=== PATIENT | female | born 1950 | race Caucasian/White ===

== ENCOUNTER 2023-01-08 16:10 | Emergency (ER) | payer MEDICARE ==
[~2023-01-08] VITALS: Ht 157.5 cm; Wt 96.2 kg
[2023-01-08] MEDS ORDERED: ADV250INH INH (18:26)
[2023-01-08] MEDS ORDERED: VENTAER INH (18:26)
[2023-01-08] MEDS ORDERED: ISOS1TAB35 PO (18:26)
[2023-01-08 18:50] VITALS: BP 144/86; TEMP 97.7; O2SAT 95
== END 2023-01-08 19:05 | disposition home or self-care (01) ==
LOC: M ED 16:10
DX: Z76.0 Encounter for issue of repeat prescription (principal); J45.909 Unspecified asthma, uncomplicated; F10.10 Alcohol abuse, uncomplicated; Z86.79 Personal history of other diseases of the circulatory system; Z88.0 Allergy status to penicillin

== ENCOUNTER 2023-05-06 08:21 | Emergency (ER) | payer MEDICARE ==
[~2023-05-06] VITALS: Ht 157.5 cm; Wt 102.2 kg
[~2023-05-06 08:21] MED LIST: ADV250INH INH; ISOS1TAB35 PO; VENTAER INH
[2023-05-06 08:22] VITALS: BP 158/72; TEMP 97.7; O2SAT 97
[2023-05-06] MEDS ORDERED: [UNRECOGNIZED DRUG - CODE] PO ×2 (09:15→09:24)
== END 2023-05-06 09:34 | disposition home or self-care (01) ==
LOC: M ED 08:21
DX: Z76.0 Encounter for issue of repeat prescription (principal); J45.909 Unspecified asthma, uncomplicated; Z96.651 Presence of right artificial knee joint; Z88.0 Allergy status to penicillin; Z87.81 Personal history of (healed) traumatic fracture; Z88.8 Allergy status to other drugs, medicaments and biological substances; Z91.030 Bee allergy status

== ENCOUNTER 2023-05-28 08:01 | Emergency (ER) | payer MEDICARE ==
[~2023-05-28] VITALS: Ht 157.5 cm; Wt 99.8 kg
[~2023-05-28 08:01] MED LIST changes: +[UNRECOGNIZED DRUG - CODE] PO
[2023-05-28 10:20] VITALS: BP 160/80; TEMP 97.8; O2SAT 95
[2023-05-28] MEDS ORDERED: [UNRECOGNIZED DRUG - CODE] PO (11:56)
== END 2023-05-28 12:01 | disposition home or self-care (01) ==
LOC: M ED 08:01
DX: Z76.0 Encounter for issue of repeat prescription (principal); Z79.899 Other long term (current) drug therapy; Z88.0 Allergy status to penicillin; Z88.1 Allergy status to other antibiotic agents; Z88.8 Allergy status to other drugs, medicaments and biological substances; Z91.030 Bee allergy status

== ENCOUNTER → 2023-06-23 | Outpatient (CLI) | payer MEDICARE | LOC: M RAD 10:12 | PROVIDERS: ATTEND Physician Assistant Medical | DX: I73.9 Peripheral vascular disease, unspecified (principal); Z82.49 Family history of ischemic heart disease and other diseases of the circulatory system ==

== ENCOUNTER → 2023-07-21 | Outpatient (CLI) | payer MEDICARE ==
[2023-07-21 16:30] LABS: ALBUMIN 3.5 G/DL (3.2-5.2); ALKALINE PHOSPHATASE 71 U/L (46-116); ALT/SGPT 20 U/L (7.0-40); AST/SGOT 11 U/L (<34); BILIRUBIN,TOTAL 0.5 MG/DL (0.3-1.2); BLOOD UREA NITROGEN 12 MG/DL (9-23); CALCIUM LEVEL 9.7 MG/DL (8.3-10.6); CARBON DIOXIDE LEVEL 25 MMOL/L (20-31); CHLORIDE LEVEL 105 MMOL/L (98-107); CHOLESTEROL LEVEL 225 MG/DL (<200); CHOLESTEROL RISK RATIO 3.86 (<5); CREATININE FOR GFR 0.59 MG/DL (0.55-1.30); GLOMERULAR FILTRATION RATE > 60.0 (>39); GLUCOSE, FASTING 72 MG/DL (74-106); HDL CHOLESTEROL 58.2 MG/DL (>40); LDL CHOLESTEROL 150.4 MG/DL (<100); NON-HDL-C 166.8 MG/DL; SODIUM LEVEL 139 MMOL/L (136-145); TOTAL PROTEIN 7.1 G/DL (5.7-8.2); TRIGLYCERIDES LEVEL 82 MG/DL (<150)
[2023-07-21 16:31] LABS: HEMOGLOBIN A1c 5.2 % (4.0-6.0)
[2023-07-21 16:33] LABS: CREATININE, URINE 139.4 MG/DL; MAU/CREAT RATIO 3.5 MCG/MG (0.0-30.0)
== END ==
LOC: M PLALAB 14:06
PROVIDERS: ATTEND Family Medicine
DX: E78.2 Mixed hyperlipidemia (principal); I10 Essential (primary) hypertension; E66.01 Morbid (severe) obesity due to excess calories; Z79.899 Other long term (current) drug therapy

== ENCOUNTER → 2024-01-24 | Outpatient (CLI) | payer MEDICARE ==
[2024-01-24 13:28] LABS: BASO % 0.6 % (0.0-1.0); EOS # 0.1 10^3/uL (0.0-0.5); EOS % 1.5 % (0.0-3.0); HEMATOCRIT 40.6 % (36.0-47.0); HEMOGLOBIN 13.1 g/dl (12.0-15.5); LYMPH # 1.3 10^3/uL (1.5-5.0); LYMPH % 27.4 % (24.0-44.0); MEAN CORPUSCULAR HEMOGLOBIN 30.1 pg (27.0-33.0); MEAN CORPUSCULAR HGB CONC 32.3 g/dl (32.0-36.5); MEAN CORPUSCULAR VOLUME 93.3 fl (80.0-96.0); MONO # 0.5 10^3/uL (0.0-0.8); MONO % 10.9 % (2.0-8.0); NEUTROPHILS # 2.8 10^3/uL (1.5-8.5); PLATELET COUNT, AUTOMATED 269 10^3/uL (150-450); RED BLOOD COUNT 4.35 10^6/uL (4.00-5.40); WHITE BLOOD COUNT 4.7 10^3/uL (4.0-10.0)
[2024-01-24 14:11] LABS: ALBUMIN 3.6 G/DL (3.2-5.2); ALKALINE PHOSPHATASE 81 U/L (35-104); ALT/SGPT 18 U/L (7.0-40); AST/SGOT 9 U/L (<34); BILIRUBIN,TOTAL 0.4 MG/DL (0.3-1.2); BLOOD UREA NITROGEN 12 MG/DL (9-23); CALCIUM LEVEL 9.8 MG/DL (8.3-10.6); CARBON DIOXIDE LEVEL 30 MMOL/L (20-31); CHLORIDE LEVEL 104 MMOL/L (98-107); CHOLESTEROL LEVEL 231 MG/DL (<200); CHOLESTEROL RISK RATIO 3.78 (<5); CREATININE FOR GFR 0.66 MG/DL (0.55-1.30); GLOMERULAR FILTRATION RATE > 60.0 (>39); GLUCOSE, FASTING 83 MG/DL (74-106); HDL CHOLESTEROL 61.1 MG/DL (>40); LDL CHOLESTEROL 155.7 MG/DL (<100); NON-HDL-C 169.9 MG/DL; POTASSIUM SERUM 4.9 MMOL/L (3.5-5.1); SODIUM LEVEL 138 MMOL/L (136-145); TOTAL 25(OH) VITAMIN D 24.7 NG/ML (20.0-100.0); TOTAL PROTEIN 7.8 G/DL (5.7-8.2); TRIGLYCERIDES LEVEL 71 MG/DL (<150)
[2024-01-24 14:12] LABS: VITAMIN B12 LEVEL 336 PG/ML (211-911)
== END ==
LOC: M PLALAB 09:22
PROVIDERS: ATTEND Family Medicine
DX: E78.2 Mixed hyperlipidemia (principal)

== ENCOUNTER → 2024-01-31 | Outpatient (CLI) | payer MEDICARE ==
[2024-01-31 13:44] LABS: CPK CREATINE PHOSPHOKINASE < 15 U/L (34-145)
[2024-01-31 13:47] LABS: FOLATE > 24.0 NG/ML (>5.4); VITAMIN B12 LEVEL 432 PG/ML (211-911)
[2024-02-01 07:27] LABS: T P ELECTROPHORESIS SO 7.6 g/dL (6.1-8.1)
[2024-02-02 09:02] LABS: ALBUMIN SPEP 4.2 g/dL (3.8-4.8); ALPHA-1-GLOBULINS SO 0.3 g/dL (0.2-0.3); ALPHA-2-GLOBULINS SO 0.9 g/dL (0.5-0.9); BETA 2 GLOBULIN 0.5 g/dL (0.2-0.5); BETA-GLOBULIN SO 0.4 g/dL (0.4-0.6); GAMMA GLOBULINS SO 1.2 g/dL (0.8-1.7)
[2024-02-04 04:06] LABS: VITAMIN E(ALPHA TOCOPHEROL) 14.4 mg/L (5.7-19.9); VITAMIN E(GAMMA TOCOPHEROL) < 1.0 mg/L (<=4.3)
== END ==
LOC: M PLALAB 01-24 09:21
PROVIDERS: ATTEND Psychiatry & Neurology Neurology
DX: E51.9 Thiamine deficiency, unspecified (principal); E53.1 Pyridoxine deficiency; E53.8 Deficiency of other specified B group vitamins; E56.0 Deficiency of vitamin E; G62.9 Polyneuropathy, unspecified; G72.9 Myopathy, unspecified; R20.0 Anesthesia of skin; R53.1 Weakness

== ENCOUNTER 2024-05-08 07:40 | Outpatient (RCR) | payer MEDICARE ==
[~2024-05-08 07:40] MED LIST changes: -ADV250INH INH; +ADVA1AER9 INH
== END 2024-05-11 ==
LOC: M PT 07:40
PROVIDERS: ATTEND Family Medicine
DX: R29.898 Other symptoms and signs involving the musculoskeletal system (principal); M54.16 Radiculopathy, lumbar region

== ENCOUNTER 2024-05-16 14:45 | Emergency (ER) | payer OTHER, MEDICARE ==
[~2024-05-16] VITALS: Ht 154.9 cm; Wt 88.1 kg
[2024-05-16] MEDS ORDERED: GABA-1171 PO (15:22)
[2024-05-16] MEDS ORDERED: NITR0.4S14 SL (15:22)
[2024-05-16] MEDS ORDERED: IBUP-1022 PO (15:22)
[2024-05-16] MEDS ORDERED: AMLO1TAB24 PO (15:22)
[2024-05-16 15:27] LABS: HEMATOCRIT 38.7 % (36.0-47.0); HEMOGLOBIN 12.8 g/dl (12.0-15.5); MEAN CORPUSCULAR HEMOGLOBIN 30.3 pg (27.0-33.0); MEAN CORPUSCULAR HGB CONC 33.1 g/dl (32.0-36.5); MEAN CORPUSCULAR VOLUME 91.7 fl (80.0-96.0); PLATELET COUNT, AUTOMATED 237 10^3/uL (150-450); RED BLOOD COUNT 4.22 10^6/uL (4.00-5.40); WHITE BLOOD COUNT 6.3 10^3/uL (4.0-10.0)
[2024-05-16] MEDS ORDERED: ISOVUE-370 76% 100ML VIAL As Ordered ONE (15:29)
[2024-05-16 18:41] VITALS: BP 162/80; TEMP 98; O2SAT 97
== END 2024-05-16 18:51 | disposition home or self-care (01) ==
LOC: M ED 14:45 → EDBD 14:45 → M ED 18:51
DX: S16.1XXA Strain of muscle, fascia and tendon at neck level, initial encounter (principal); S20.212A Contusion of left front wall of thorax, initial encounter; Z87.81 Personal history of (healed) traumatic fracture; J84.9 Interstitial pulmonary disease, unspecified; V43.53XA Car driver injured in collision with pick-up truck in traffic accident, initial encounter; Y92.9 Unspecified place or not applicable; Y93.9 Activity, unspecified; Y99.9 Unspecified external cause status; K21.9 Gastro-esophageal reflux disease without esophagitis; I25.2 Old myocardial infarction; F32.A Depression, unspecified; F43.10 Post-traumatic stress disorder, unspecified; J45.909 Unspecified asthma, uncomplicated; M25.78 Osteophyte, vertebrae; M43.22 Fusion of spine, cervical region; F03.90 Unspecified dementia, unspecified severity, without behavioral disturbance, psychotic disturbance, mood disturbance, and anxiety; Z79.899 Other long term (current) drug therapy; Z88.0 Allergy status to penicillin; Z88.1 Allergy status to other antibiotic agents; Z88.8 Allergy status to other drugs, medicaments and biological substances; Z91.030 Bee allergy status
CPT/HCPCS: 71260; 72125; 80047; 84484; 85027; 87486; 87581; 87633; 87798; 93005; 99284; Q9967

== ENCOUNTER → 2024-05-22 | Outpatient (CLI) | payer MEDICARE ==
[~2024-05-22] MED LIST changes: +AMLO1TAB24 PO; +GABA-1171 PO; +IBUP-1022 PO; +NITR0.4S14 SL
== END ==
LOC: M RAD 11:12
PROVIDERS: ATTEND Family Medicine
DX: R29.898 Other symptoms and signs involving the musculoskeletal system (principal); I73.9 Peripheral vascular disease, unspecified

== ENCOUNTER 2024-06-04 12:05 | Emergency (ER) | payer MEDICARE ==
[~2024-06-04] VITALS: Ht 154.9 cm; Wt 89.7 kg
[2024-06-04 18:05] VITALS: BP 105/60; TEMP 97.1; O2SAT 94
== END 2024-06-04 18:06 | disposition home or self-care (01) ==
LOC: M ED 12:05
DX: S61.316A Laceration without foreign body of right little finger with damage to nail, initial encounter (principal); W26.9XXA Contact with unspecified sharp object(s), initial encounter; Y92.009 Unspecified place in unspecified non-institutional (private) residence as the place of occurrence of the external cause; Y93.G1 Activity, food preparation and clean up; Y99.9 Unspecified external cause status; I25.2 Old myocardial infarction; Z79.899 Other long term (current) drug therapy; Z88.0 Allergy status to penicillin; Z88.1 Allergy status to other antibiotic agents; Z88.8 Allergy status to other drugs, medicaments and biological substances; Z91.030 Bee allergy status

== ENCOUNTER → 2024-06-21 | Outpatient (CLI) | payer MEDICARE ==
[2024-06-21 15:58] LABS: BASO % 0.5 % (0.0-1.0); EOS # 0.1 10^3/uL (0.0-0.5); EOS % 1.8 % (0.0-3.0); HEMATOCRIT 40.1 % (36.0-47.0); HEMOGLOBIN 12.5 g/dl (12.0-15.5); LYMPH # 1.2 10^3/uL (1.5-5.0); LYMPH % 15.6 % (24.0-44.0); MEAN CORPUSCULAR HEMOGLOBIN 29.2 pg (27.0-33.0); MEAN CORPUSCULAR HGB CONC 31.2 g/dl (32.0-36.5); MEAN CORPUSCULAR VOLUME 93.7 fl (80.0-96.0); MONO # 0.6 10^3/uL (0.0-0.8); MONO % 7.8 % (2.0-8.0); NEUTROPHILS # 5.4 10^3/uL (1.5-8.5); NEUTROPHILS % 73.6 % (36.0-66.0); PLATELET COUNT, AUTOMATED 328 10^3/uL (150-450); RED BLOOD COUNT 4.28 10^6/uL (4.00-5.40); WHITE BLOOD COUNT 7.4 10^3/uL (4.0-10.0)
[2024-06-21 16:18] LABS: ALBUMIN 3.2 G/DL (3.2-5.2); ALKALINE PHOSPHATASE 113 U/L (35-104); ALT/SGPT 21 U/L (7.0-40); AST/SGOT 16 U/L (<34); BILIRUBIN,TOTAL 0.2 MG/DL (0.3-1.2); BLOOD UREA NITROGEN 11 MG/DL (9-23); CALCIUM LEVEL 8.8 MG/DL (8.3-10.6); CARBON DIOXIDE LEVEL 30 MMOL/L (20-31); CHLORIDE LEVEL 101 MMOL/L (98-107); CREATININE FOR GFR 0.64 MG/DL (0.55-1.30); GLOMERULAR FILTRATION RATE > 90.0 (>39); GLUCOSE, FASTING 83 MG/DL (74-106); POTASSIUM SERUM 4.5 MMOL/L (3.5-5.1); SODIUM LEVEL 139 MMOL/L (136-145); TOTAL PROTEIN 7.3 G/DL (5.7-8.2)
== END ==
LOC: M PLALAB 11:31
DX: J45.40 Moderate persistent asthma, uncomplicated (principal); R06.02 Shortness of breath

== ENCOUNTER → 2024-06-21 | Outpatient (REF) | payer MEDICARE | LOC: M SFHCPLAZ 11:17 | DX: Z53.21 Procedure and treatment not carried out due to patient leaving prior to being seen by health care provider (principal) ==

== ENCOUNTER 2024-07-01 11:09 | Inpatient (IN) | payer MEDICARE ==
[2024-07-01] VITALS (8 sets, daily range): BP systolic 113–125; BP diastolic 55–58; TEMP 98–98.1; O2SAT 90–95
[~2024-07-01] VITALS: Ht 157.5 cm; Wt 82.4 kg
[2024-07-01] MEDS: methylPREDNISolone 125MG 2ML VIAL IV ONE ×2 (11:42→15:40)
[2024-07-01] MEDS: ALBUTEROL SULFATE 2.5MG/0.5ML INH CONCENTRATE NEB SOLN INH ONE (11:42)
[2024-07-01] MEDS: IPRATROPIUM 0.5MG/ALBUTEROL 2.5MG INH SOL UD 3ML NEB ONE (11:42)
[2024-07-01] MEDS ORDERED: DOXY-441 (11:44)
[2024-07-01 11:48] LABS: BASO % 0.2 % (0.0-1.0); EOS # 0.1 10^3/uL (0.0-0.5); EOS % 0.6 % (0.0-3.0); HEMATOCRIT 37.2 % (36.0-47.0); HEMOGLOBIN 12.3 g/dl (12.0-15.5); LYMPH # 0.8 10^3/uL (1.5-5.0); LYMPH % 7.6 % (24.0-44.0); MEAN CORPUSCULAR HEMOGLOBIN 29.6 pg (27.0-33.0); MEAN CORPUSCULAR HGB CONC 33.1 g/dl (32.0-36.5); MEAN CORPUSCULAR VOLUME 89.6 fl (80.0-96.0); MONO # 0.9 10^3/uL (0.0-0.8); MONO % 8.8 % (2.0-8.0); NEUTROPHILS # 8.7 10^3/uL (1.5-8.5); PLATELET COUNT, AUTOMATED 401 10^3/uL (150-450); RED BLOOD COUNT 4.15 10^6/uL (4.00-5.40); WHITE BLOOD COUNT 10.6 10^3/uL (4.0-10.0)
[2024-07-01 12:16] LABS: CK-MB VALUE MASS < 1.0 NG/ML (<3.6)
[2024-07-01 12:19] LABS: ALBUMIN 2.8 G/DL (3.2-5.2); ALKALINE PHOSPHATASE 104 U/L (35-104); ALT/SGPT 13 U/L (7.0-40); AST/SGOT 24 U/L (<34); BILIRUBIN,DIRECT 0.2 MG/DL (<0.4); BILIRUBIN,TOTAL 0.5 MG/DL (0.3-1.2); BLOOD UREA NITROGEN 9 MG/DL (9-23); CALCIUM LEVEL 8.9 MG/DL (8.3-10.6); CARBON DIOXIDE LEVEL 26 MMOL/L (20-31); CHLORIDE LEVEL 98 MMOL/L (98-107); CPK CREATINE PHOSPHOKINASE 32 U/L (34-145); CREATININE FOR GFR 0.61 MG/DL (0.55-1.30); GLOMERULAR FILTRATION RATE > 90.0 (>39); GLUCOSE, FASTING 96 MG/DL (74-106); MB/CK RELATIVE INDEX 3.12 (< OR =4); POTASSIUM SERUM 3.8 MMOL/L (3.5-5.1); SODIUM LEVEL 134 MMOL/L (136-145); TOTAL PROTEIN 7.8 G/DL (5.7-8.2)
[2024-07-01 12:21] LABS: THYROID STIMULATING HORMONE 0.909 uIU/ML (0.55-4.78); THYROXINE (T4) 8.2 UG/DL (4.5-10.9)
[2024-07-01 12:24] LABS: ABG BASE EXCESS 0.5 (-2.0-2.0); ABG HCO3 23.7 MMOL/L (22.0-26.0); ABG O2 SATURATION 95.6 % (95.0-99.0); ABG PARTIAL PRESSURE CO2 33.5 mmHg (35.0-45.0); ABG STANDARD HCO3 24.9 MMOL/L. (22.0-26.0); ABG TOTAL CO2 24.7 MMOL/L (23.0-31.0); ABG pH (ARTERIAL) 7.467 UNITS (7.350-7.450)
[2024-07-01 12:25] LABS: PROCALCITONIN 0.11 ng/ml
[2024-07-01] MEDS ORDERED: ISOVUE-370 76% 100ML VIAL As Ordered ONE (12:38)
[2024-07-01] MEDS ORDERED: METOPROLOL 5 MG/5 ML VIAL IV SCH (13:05)
[2024-07-01 14:01] LABS: CK-MB VALUE MASS < 1.0 NG/ML (<3.6); CPK CREATINE PHOSPHOKINASE 21 U/L (34-145); MB/CK RELATIVE INDEX 4.76 (< OR =4)
[2024-07-01] MEDS ORDERED: ALBU8.5H INH (14:09)
[2024-07-01] MEDS ORDERED: ISOS1TAB35 PO (14:09)
[2024-07-01] MEDS ORDERED: [UNRECOGNIZED DRUG - CODE] PO (14:09)
[2024-07-01] MEDS ORDERED: GUAI1SOL2 PO (14:11)
[2024-07-01] MEDS ORDERED: ADVA1AER8 INH (14:11)
[2024-07-01] MEDS ORDERED: DONE10TA90 PO (14:13)
[2024-07-01] MEDS ORDERED: MEMA1TAB3 PO (14:13)
[2024-07-01] MEDS ORDERED: HOME MED LIST COMPLETE! XX SCH (14:15)
[2024-07-01] MEDS: CEFEPIME HCL 2 GM in DEXTROSE 5% (D5W) ADV/MINI-BAG 50 ML IV ONE (14:21)
[2024-07-01] MEDS ORDERED: NITROGLYCERIN 0.4MG SUBL TABLET SL SCH (15:25)
[2024-07-01] MEDS: PANTOPRAZOLE 40MG VIAL IV SCH (15:39)
[2024-07-01] MEDS: ENOXAPARIN 40MG/0.4ML SYRINGE (J1650 PER 10MG) SC SCH (15:40)
[2024-07-01] MEDS: MEROPENEM INJ 1 GM in IV 1 EA IV ONE (15:40)
[2024-07-01] MEDS: FUROSEMIDE 20MG/2ML VIAL IV ONE (15:40)
[2024-07-01] MEDS: GABAPENTIN 100 MG CAP PO SCH (16:22)
[2024-07-01] MEDS: FORMOTEROL FUMARATE 20 MCG/2 ML INHALATION SOLUTION (PERFOROMIST) INH SCH (19:52)
[2024-07-01] MEDS: ISOSORBIDE MON. (IMDUR) 30MG XR TAB PO SCH (20:39)
[2024-07-01] MEDS: MEMANTINE 5MG TABLET (NAMENDA) PO SCH (20:39)
[2024-07-01] MEDS: amLODIPine 5 MG TAB PO SCH (20:39)
[2024-07-01] MEDS: CEFEPIME HCL 2 GM in DEXTROSE 5% (D5W) ADV/MINI-BAG 50 ML IV SCH (23:46)
[2024-07-02] VITALS (18 sets, daily range): BP systolic 90–118; BP diastolic 51–66; TEMP 97.8–98.2; O2SAT 84–96
[2024-07-02 05:12] LABS: BASO % 0.1 % (0.0-1.0); HEMATOCRIT 33.6 % (36.0-47.0); HEMOGLOBIN 11.2 g/dl (12.0-15.5); LYMPH # 0.5 10^3/uL (1.5-5.0); LYMPH % 6.3 % (24.0-44.0); MEAN CORPUSCULAR HEMOGLOBIN 29.7 pg (27.0-33.0); MEAN CORPUSCULAR HGB CONC 33.3 g/dl (32.0-36.5); MEAN CORPUSCULAR VOLUME 89.1 fl (80.0-96.0); MONO # 0.4 10^3/uL (0.0-0.8); MONO % 4.8 % (2.0-8.0); NEUTROPHILS # 6.7 10^3/uL (1.5-8.5); NEUTROPHILS % 87.9 % (36.0-66.0); PLATELET COUNT, AUTOMATED 370 10^3/uL (150-450); RED BLOOD COUNT 3.77 10^6/uL (4.00-5.40); WHITE BLOOD COUNT 7.6 10^3/uL (4.0-10.0)
[2024-07-02 05:32] LABS: BLOOD UREA NITROGEN 12 MG/DL (9-23); CALCIUM LEVEL 8.5 MG/DL (8.3-10.6); CARBON DIOXIDE LEVEL 26 MMOL/L (20-31); CHLORIDE LEVEL 103 MMOL/L (98-107); CPK CREATINE PHOSPHOKINASE 21 U/L (34-145); CREATININE FOR GFR 0.49 MG/DL (0.55-1.30); GLOMERULAR FILTRATION RATE > 90.0 (>39); GLUCOSE, FASTING 165 MG/DL (74-106); POTASSIUM SERUM 3.4 MMOL/L (3.5-5.1); SODIUM LEVEL 139 MMOL/L (136-145)
[2024-07-02] MEDS: KCL 10MEQ/100ML SWI (KRUN) 10 MEQ in IV 1 EA IV SCH (06:07)
[2024-07-02] MEDS: POTASSIUM CHLORIDE 10% LIQ 20MEQ/15ML UDC PO ONE (06:43)
[2024-07-02] MEDS: DONEPEZIL 5 MG TAB PO SCH (08:09)
[2024-07-02] MEDS: FUROSEMIDE 40MG/4ML VIAL IV ONE (08:10)
[2024-07-02] MEDS ORDERED: methylPREDNISolone 125MG 2ML VIAL IV SCH (09:00)
[2024-07-02 09:02] LABS: MAGNESIUM LEVEL 2.4 MG/DL (1.8-2.4); PHOSPHORUS LEVEL 3.7 MG/DL (2.4-5.1)
[2024-07-02] MEDS: methylPREDNISolone 125MG 2ML VIAL IV SCH (09:42)
[2024-07-02] MEDS ORDERED: methylPREDNISolone 250 MG in D5W 100 ML IV SCH (10:00)
[2024-07-02] MEDS: AZITHROMYCIN 250MG TABLET PO ONE (15:08)
[2024-07-02] MEDS: LACTOBACILLUS ACIDOPHILUS CAP (BACID) PO SCH (17:52)
[2024-07-02] MEDS: guaiFENesin ER TABLET 600 MG TAB PO SCH (17:54)
[2024-07-03] VITALS (10 sets, daily range): BP systolic 115–129; BP diastolic 56–79; TEMP 97.6–98.5; O2SAT 88–97
[2024-07-03 05:09] LABS: BASO % 0.1 % (0.0-1.0); HEMATOCRIT 34.2 % (36.0-47.0); HEMOGLOBIN 11.1 g/dl (12.0-15.5); LYMPH # 0.7 10^3/uL (1.5-5.0); LYMPH % 3.8 % (24.0-44.0); MEAN CORPUSCULAR HEMOGLOBIN 28.8 pg (27.0-33.0); MEAN CORPUSCULAR HGB CONC 32.5 g/dl (32.0-36.5); MEAN CORPUSCULAR VOLUME 88.8 fl (80.0-96.0); MONO % 5.7 % (2.0-8.0); NEUTROPHILS # 16.1 10^3/uL (1.5-8.5); NEUTROPHILS % 89.4 % (36.0-66.0); PLATELET COUNT, AUTOMATED 386 10^3/uL (150-450); RED BLOOD COUNT 3.85 10^6/uL (4.00-5.40)
[2024-07-03 05:40] LABS: BLOOD UREA NITROGEN 18 MG/DL (9-23); CALCIUM LEVEL 8.7 MG/DL (8.3-10.6); CARBON DIOXIDE LEVEL 26 MMOL/L (20-31); CHLORIDE LEVEL 105 MMOL/L (98-107); CPK CREATINE PHOSPHOKINASE < 15 U/L (34-145); CREATININE FOR GFR 0.49 MG/DL (0.55-1.30); GLOMERULAR FILTRATION RATE > 90.0 (>39); GLUCOSE, FASTING 160 MG/DL (74-106); POTASSIUM SERUM 3.8 MMOL/L (3.5-5.1); RHEUMATOID FACTOR QUANT < 3.5 IU/ML (<14); SODIUM LEVEL 140 MMOL/L (136-145)
[2024-07-03] MEDS: MAG SULF 1GM/100ML (MAG RUN) 1 GM in IV 1 EA IV ONE (10:18)
[2024-07-03] MEDS: FUROSEMIDE 40MG/4ML VIAL IV ONE (10:20)
[2024-07-03] MEDS: POTASSIUM CHLORIDE 10MEQ SR TABLET PO ONE (13:10)
[2024-07-03] MEDS: AZITHROMYCIN 250MG TABLET PO SCH (15:10)
[2024-07-03] MEDS: IBUPROFEN 600MG TAB PO PRN (15:55)
[2024-07-03] MEDS ORDERED: LevoFLOXacin 750 MG TABLET PO SCH (16:00)
[2024-07-04 03:44] VITALS: BP 123/58; TEMP 97; O2SAT 90
[2024-07-04] MEDS ORDERED: LIDOCAINE 5% (LIDODERM) PATCH TD PRN (03:45)
[2024-07-04 04:56] LABS: BASO % 0.1 % (0.0-1.0); HEMATOCRIT 34.4 % (36.0-47.0); HEMOGLOBIN 10.9 g/dl (12.0-15.5); LYMPH # 0.7 10^3/uL (1.5-5.0); LYMPH % 4.4 % (24.0-44.0); MEAN CORPUSCULAR HEMOGLOBIN 28.7 pg (27.0-33.0); MEAN CORPUSCULAR HGB CONC 31.7 g/dl (32.0-36.5); MEAN CORPUSCULAR VOLUME 90.5 fl (80.0-96.0); MONO # 0.9 10^3/uL (0.0-0.8); MONO % 5.8 % (2.0-8.0); NEUTROPHILS # 13.1 10^3/uL (1.5-8.5); NEUTROPHILS % 88.5 % (36.0-66.0); PLATELET COUNT, AUTOMATED 370 10^3/uL (150-450); WHITE BLOOD COUNT 14.8 10^3/uL (4.0-10.0)
[2024-07-04 05:15] LABS: BLOOD UREA NITROGEN 17 MG/DL (9-23); CALCIUM LEVEL 8.8 MG/DL (8.3-10.6); CARBON DIOXIDE LEVEL 28 MMOL/L (20-31); CHLORIDE LEVEL 108 MMOL/L (98-107); GLOMERULAR FILTRATION RATE > 90.0 (>39); GLUCOSE, FASTING 175 MG/DL (74-106); POTASSIUM SERUM 3.9 MMOL/L (3.5-5.1); SODIUM LEVEL 143 MMOL/L (136-145)
[2024-07-04 07:25] VITALS: BP 130/60; TEMP 97.2; O2SAT 90
[2024-07-04] MEDS: PANTOPRAZOLE 40MG TAB (PROTONIX) PO SCH (08:45)
[2024-07-04] MEDS ORDERED: CEPACOL LOZENGE PO PRN (09:45)
[2024-07-04] MEDS: KETOROLAC 30 MG/ML 1ML VIAL IV PRN ×2 (10:56→23:03)
[2024-07-04] MEDS: CEPACOL LOZENGE PO PRN (11:05)
[2024-07-04 11:39] VITALS: BP 132/60; TEMP 97.9; O2SAT 93
[2024-07-04] MEDS: ACETAMINOPH W/CODEINE #3 TAB UD PO PRN (14:36)
[2024-07-04 15:38] VITALS: BP 141/65; TEMP 98; O2SAT 93
[2024-07-04 19:25] VITALS: BP 129/60; TEMP 98.6; O2SAT 91
[2024-07-04] MEDS: LIDOCAINE 5% (LIDODERM) PATCH TD SCH (20:29)
[2024-07-04] MEDS: DESIPRAMINE PO SCH (20:31)
[2024-07-05] VITALS (39 sets, daily range): BP systolic 99–145; BP diastolic 57–68; TEMP 97.2–98; O2SAT 78–99
[2024-07-05 05:41] LABS: BASO % 0.1 % (0.0-1.0); HEMOGLOBIN 11.6 g/dl (12.0-15.5); LYMPH # 0.8 10^3/uL (1.5-5.0); LYMPH % 5.1 % (24.0-44.0); MEAN CORPUSCULAR HEMOGLOBIN 28.9 pg (27.0-33.0); MEAN CORPUSCULAR HGB CONC 32.2 g/dl (32.0-36.5); MEAN CORPUSCULAR VOLUME 89.6 fl (80.0-96.0); MONO # 1.4 10^3/uL (0.0-0.8); NEUTROPHILS # 13.2 10^3/uL (1.5-8.5); NEUTROPHILS % 84.1 % (36.0-66.0); PLATELET COUNT, AUTOMATED 363 10^3/uL (150-450); RED BLOOD COUNT 4.02 10^6/uL (4.00-5.40); WHITE BLOOD COUNT 15.6 10^3/uL (4.0-10.0)
[2024-07-05 06:12] LABS: BLOOD UREA NITROGEN 20 MG/DL (9-23); CALCIUM LEVEL 8.6 MG/DL (8.3-10.6); CARBON DIOXIDE LEVEL 28 MMOL/L (20-31); CHLORIDE LEVEL 106 MMOL/L (98-107); CREATININE FOR GFR 0.42 MG/DL (0.55-1.30); GLOMERULAR FILTRATION RATE > 90.0 (>39); GLUCOSE, FASTING 96 MG/DL (74-106); POTASSIUM SERUM 4.2 MMOL/L (3.5-5.1); SODIUM LEVEL 143 MMOL/L (136-145)
[2024-07-05] MEDS: PANTOPRAZOLE 40MG VIAL IV SCH (09:33)
[2024-07-05] MEDS: FUROSEMIDE 100MG/10ML VIAL IV ONE (14:11)
[2024-07-05 17:06] LABS: ALDOLASE 8.8 U/L (< OR = 8.1)
[2024-07-06] VITALS (33 sets, daily range): BP systolic 116–145; BP diastolic 57–68; TEMP 97.8–98.1; O2SAT 86–98
[2024-07-06 06:09] LABS: BASO % 0.3 % (0.0-1.0); EOS % 0.1 % (0.0-3.0); HEMATOCRIT 34.7 % (36.0-47.0); HEMOGLOBIN 11.3 g/dl (12.0-15.5); LYMPH # 0.9 10^3/uL (1.5-5.0); LYMPH % 6.5 % (24.0-44.0); MEAN CORPUSCULAR HEMOGLOBIN 29.1 pg (27.0-33.0); MEAN CORPUSCULAR HGB CONC 32.6 g/dl (32.0-36.5); MEAN CORPUSCULAR VOLUME 89.4 fl (80.0-96.0); MONO # 1.1 10^3/uL (0.0-0.8); MONO % 7.8 % (2.0-8.0); NEUTROPHILS # 11.6 10^3/uL (1.5-8.5); NEUTROPHILS % 81.9 % (36.0-66.0); PLATELET COUNT, AUTOMATED 387 10^3/uL (150-450); RED BLOOD COUNT 3.88 10^6/uL (4.00-5.40); WHITE BLOOD COUNT 14.2 10^3/uL (4.0-10.0)
[2024-07-06 06:47] LABS: BLOOD UREA NITROGEN 29 MG/DL (9-23); CALCIUM LEVEL 8.4 MG/DL (8.3-10.6); CARBON DIOXIDE LEVEL 32 MMOL/L (20-31); CHLORIDE LEVEL 103 MMOL/L (98-107); CREATININE FOR GFR 0.57 MG/DL (0.55-1.30); GLOMERULAR FILTRATION RATE > 90.0 (>39); GLUCOSE, FASTING 91 MG/DL (74-106); POTASSIUM SERUM 4.1 MMOL/L (3.5-5.1); SODIUM LEVEL 142 MMOL/L (136-145)
[2024-07-07] VITALS (37 sets, daily range): BP systolic 108–140; BP diastolic 54–61; TEMP 96.9–98.6; O2SAT 76–98
[2024-07-07 05:59] LABS: HEMATOCRIT 36.2 % (36.0-47.0); HEMOGLOBIN 11.6 g/dl (12.0-15.5); MEAN CORPUSCULAR HEMOGLOBIN 28.7 pg (27.0-33.0); MEAN CORPUSCULAR VOLUME 89.6 fl (80.0-96.0); PLATELET COUNT, AUTOMATED 427 10^3/uL (150-450); RED BLOOD COUNT 4.04 10^6/uL (4.00-5.40)
[2024-07-07 06:17] LABS: LDH LACTATE DEHYDROGENASE 412 U/L (120-246)
[2024-07-07 06:18] LABS: BLOOD UREA NITROGEN 23 MG/DL (9-23); CALCIUM LEVEL 8.4 MG/DL (8.3-10.6); CARBON DIOXIDE LEVEL 29 MMOL/L (20-31); CHLORIDE LEVEL 104 MMOL/L (98-107); CREATININE FOR GFR 0.41 MG/DL (0.55-1.30); GLOMERULAR FILTRATION RATE > 90.0 (>39); GLUCOSE, FASTING 163 MG/DL (74-106); POTASSIUM SERUM 4.1 MMOL/L (3.5-5.1); SODIUM LEVEL 141 MMOL/L (136-145)
[2024-07-07 06:38] LABS: ATYPICAL LYMPH 8 % (0-5); LYMPHOCYTES 5 % (16-44); METAMYELOCYTES 1 % (0-0); MONOCYTES 3 % (0-5); MYELOCYTES 2 % (0-0); NEUTROPHILS 79 % (28-66)
[2024-07-07 06:41] LABS: PLATELET ESTIMATE NORMAL (NORMAL)
[2024-07-07] MEDS: BACTRIM 160MG/800MG DS TAB PO SCH (11:01)
[2024-07-07] MEDS: IPRATROPIUM 0.5MG/ALBUTEROL 2.5MG INH SOL UD 3ML NEB SCH (12:14)
[2024-07-07 12:30] LABS: ABG BASE EXCESS 2.3 (-2.0-2.0); ABG HCO3 25.9 MMOL/L (22.0-26.0); ABG O2 SATURATION 95.3 % (95.0-99.0); ABG PARTIAL PRESSURE CO2 36.7 mmHg (35.0-45.0); ABG STANDARD HCO3 26.4 MMOL/L. (22.0-26.0); ABG pH (ARTERIAL) 7.466 UNITS (7.350-7.450)
[2024-07-08] VITALS (37 sets, daily range): BP systolic 109–132; BP diastolic 55–66; TEMP 97–98.5; O2SAT 82–97
[2024-07-08 04:04] LABS: BASO # 0.1 10^3/uL (0.0-0.2); BASO % 0.5 % (0.0-1.0); EOS % 0.2 % (0.0-3.0); HEMATOCRIT 35.3 % (36.0-47.0); HEMOGLOBIN 11.3 g/dl (12.0-15.5); LYMPH # 0.8 10^3/uL (1.5-5.0); LYMPH % 4.6 % (24.0-44.0); MEAN CORPUSCULAR HEMOGLOBIN 28.6 pg (27.0-33.0); MEAN CORPUSCULAR VOLUME 89.4 fl (80.0-96.0); MONO # 1.3 10^3/uL (0.0-0.8); MONO % 7.7 % (2.0-8.0); NEUTROPHILS # 13.8 10^3/uL (1.5-8.5); NEUTROPHILS % 79.3 % (36.0-66.0); PLATELET COUNT, AUTOMATED 410 10^3/uL (150-450); RED BLOOD COUNT 3.95 10^6/uL (4.00-5.40); WHITE BLOOD COUNT 17.4 10^3/uL (4.0-10.0)
[2024-07-08 04:26] LABS: BLOOD UREA NITROGEN 24 MG/DL (9-23); CALCIUM LEVEL 8.6 MG/DL (8.3-10.6); CARBON DIOXIDE LEVEL 29 MMOL/L (20-31); CHLORIDE LEVEL 104 MMOL/L (98-107); CREATININE FOR GFR 0.54 MG/DL (0.55-1.30); GLOMERULAR FILTRATION RATE > 90.0 (>39); GLUCOSE, FASTING 105 MG/DL (74-106); POTASSIUM SERUM 4.6 MMOL/L (3.5-5.1); SODIUM LEVEL 140 MMOL/L (136-145)
[2024-07-08] MEDS: FUROSEMIDE 100MG/10ML VIAL IV ONE (08:43)
[2024-07-08] MEDS: methylPREDNISolone 40MG 1ML VIAL IV SCH (08:43)
[2024-07-08 14:57] LABS: BLOOD UREA NITROGEN 26 MG/DL (9-23); CALCIUM LEVEL 8.5 MG/DL (8.3-10.6); CARBON DIOXIDE LEVEL 28 MMOL/L (20-31); CHLORIDE LEVEL 101 MMOL/L (98-107); CREATININE FOR GFR 0.68 MG/DL (0.55-1.30); GLOMERULAR FILTRATION RATE > 90.0 (>39); GLUCOSE, FASTING 182 MG/DL (74-106); POTASSIUM SERUM 4.9 MMOL/L (3.5-5.1); SODIUM LEVEL 137 MMOL/L (136-145)
[2024-07-08] MEDS ORDERED: PILL CUTTER 1 EACH XX ONE (20:51)
[2024-07-09] VITALS (28 sets, daily range): BP systolic 109–138; BP diastolic 56–62; TEMP 97.8–98.6; O2SAT 85–98
[2024-07-09 05:36] LABS: BASO # 0.1 10^3/uL (0.0-0.2); BASO % 0.6 % (0.0-1.0); EOS # 0.1 10^3/uL (0.0-0.5); EOS % 0.7 % (0.0-3.0); HEMATOCRIT 37.9 % (36.0-47.0); LYMPH # 0.6 10^3/uL (1.5-5.0); LYMPH % 3.5 % (24.0-44.0); MEAN CORPUSCULAR HEMOGLOBIN 28.2 pg (27.0-33.0); MEAN CORPUSCULAR HGB CONC 31.7 g/dl (32.0-36.5); MEAN CORPUSCULAR VOLUME 89.2 fl (80.0-96.0); MONO # 0.9 10^3/uL (0.0-0.8); MONO % 5.2 % (2.0-8.0); NEUTROPHILS # 13.7 10^3/uL (1.5-8.5); NEUTROPHILS % 83.4 % (36.0-66.0); PLATELET COUNT, AUTOMATED 432 10^3/uL (150-450); RED BLOOD COUNT 4.25 10^6/uL (4.00-5.40); WHITE BLOOD COUNT 16.5 10^3/uL (4.0-10.0)
[2024-07-09 05:40] LABS: BLOOD UREA NITROGEN 24 MG/DL (9-23); CALCIUM LEVEL 8.9 MG/DL (8.3-10.6); CARBON DIOXIDE LEVEL 28 MMOL/L (20-31); CHLORIDE LEVEL 99 MMOL/L (98-107); CREATININE FOR GFR 0.57 MG/DL (0.55-1.30); GLOMERULAR FILTRATION RATE > 90.0 (>39); GLUCOSE, FASTING 163 MG/DL (74-106); POTASSIUM SERUM 5.1 MMOL/L (3.5-5.1); SODIUM LEVEL 136 MMOL/L (136-145)
[2024-07-09 12:58] LABS: ANTI SCLERODERMA ANTIBODIES <1.0 NEG AI (<1.0 NEG); RNP ANTIBODY 6.8 POS AI (<1.0 NEG); SM ANTIBODY 6.6 POS AI (<1.0 NEG)
[2024-07-09] MEDS: LORazepam 0.5 MG TAB PO ONE (22:06)
[2024-07-10] VITALS (22 sets, daily range): BP systolic 117–163; BP diastolic 55–70; TEMP 97.9–98.7; O2SAT 78–95
[2024-07-10 06:33] LABS: HEMATOCRIT 36.6 % (36.0-47.0); HEMOGLOBIN 11.6 g/dl (12.0-15.5); MEAN CORPUSCULAR HEMOGLOBIN 28.6 pg (27.0-33.0); MEAN CORPUSCULAR HGB CONC 31.7 g/dl (32.0-36.5); MEAN CORPUSCULAR VOLUME 90.1 fl (80.0-96.0); PLATELET COUNT, AUTOMATED 431 10^3/uL (150-450); RED BLOOD COUNT 4.06 10^6/uL (4.00-5.40); WHITE BLOOD COUNT 17.6 10^3/uL (4.0-10.0)
[2024-07-10 06:58] LABS: BLOOD UREA NITROGEN 24 MG/DL (9-23); CALCIUM LEVEL 8.6 MG/DL (8.3-10.6); CARBON DIOXIDE LEVEL 29 MMOL/L (20-31); CHLORIDE LEVEL 99 MMOL/L (98-107); CREATININE FOR GFR 0.51 MG/DL (0.55-1.30); GLOMERULAR FILTRATION RATE > 90.0 (>39); GLUCOSE, FASTING 135 MG/DL (74-106); POTASSIUM SERUM 5.4 MMOL/L (3.5-5.1); SODIUM LEVEL 135 MMOL/L (136-145)
[2024-07-10 13:42] LABS: CARBONIC ANHYDRASE VI IgA ABS 91.7 EU/ml (<20.0); CARBONIC ANHYDRASE VI IgM ABS 7.5 EU/ml (<20.0); PAROTID SPECIFIC PROTEIN IgA 81.4 EU/ml (<20.0); PAROTID SPECIFIC PROTEIN IgG 6.7 EU/ml (<20.0); PAROTID SPECIFIC PROTEIN IgM < 1.0 EU/ml (<20.0); SALIVARY PROTEIN 1 IgA 15.2 EU/ml (<20.0); SALIVARY PROTEIN 1 IgG 5.7 EU/ml (<20.0); SALIVARY PROTEIN 1 IgM 6.9 EU/ml (<20.0)
[2024-07-10] MEDS: LORazepam 2 MG/ML 1ML VIAL IV PRN (23:32)
[2024-07-11] VITALS (24 sets, daily range): BP systolic 146–180; BP diastolic 74–76; TEMP 97.5–99.4; O2SAT 66–90
[2024-07-11] MEDS ORDERED: CHLORASEPTIC SPRAY MT PRN (00:35)
[2024-07-11] MEDS: LORazepam 2 MG/ML 1ML VIAL IV ONE ×2 (01:03→02:29)
[2024-07-11] MEDS: methylPREDNISolone 125MG 2ML VIAL IV ONE (03:45)
[2024-07-11] MEDS: methylPREDNISolone 1,000 MG, VIAL MATE ADAPTER 1 EACH in NS 100 ML IV ONE (04:15)
[2024-07-11 05:33] LABS: ANTI DS-DNA AB NEGATIVE (NEGATIVE)
[2024-07-11 06:27] LABS: HEMATOCRIT 41.3 % (36.0-47.0); HEMOGLOBIN 13.1 g/dl (12.0-15.5); MEAN CORPUSCULAR HEMOGLOBIN 28.7 pg (27.0-33.0); MEAN CORPUSCULAR HGB CONC 31.7 g/dl (32.0-36.5); MEAN CORPUSCULAR VOLUME 90.4 fl (80.0-96.0); RED BLOOD COUNT 4.57 10^6/uL (4.00-5.40); WHITE BLOOD COUNT 23.6 10^3/uL (4.0-10.0)
[2024-07-11 06:31] LABS: PLATELET COUNT, AUTOMATED 653 10^3/uL (150-450)
[2024-07-11] MEDS: LORazepam 2 MG/ML 1ML VIAL IV STA (06:38)
[2024-07-11 06:43] LABS: BLOOD UREA NITROGEN 27 MG/DL (9-23); CALCIUM LEVEL 9.2 MG/DL (8.3-10.6); CARBON DIOXIDE LEVEL 28 MMOL/L (20-31); CHLORIDE LEVEL 94 MMOL/L (98-107); GLOMERULAR FILTRATION RATE > 90.0 (>39); GLUCOSE, FASTING 198 MG/DL (74-106); POTASSIUM SERUM 5.8 MMOL/L (3.5-5.1); SODIUM LEVEL 132 MMOL/L (136-145)
[2024-07-11] MEDS ORDERED: ONDANSETRON 4MG 2ML VIAL IV PRN (08:40)
[2024-07-11] MEDS ORDERED: SCOPOLAMINE 1MG TRANSDERMAL PATCH TOP PRN (08:40)
[2024-07-11] MEDS: LORazepam 2 MG/ML 1ML VIAL IV PRN (09:29)
[2024-07-11] MEDS: MORPHINE SULFATE INJ 100 MG in NS 90 ML IV SCH (10:48)
[2024-07-11] MEDS ORDERED: MORPHINE SULFATE INJ 100 MG in NS 90 ML IV SCH (11:00)
[2024-07-13 11:07] LABS: ANA PATTERN Nuclear, Speckled (NEGATIVE); ANA SCREEN, IFA POSITIVE (NEGATIVE)
[2024-07-13 18:12] LABS: ASPERGILLUS FLAVUS ABY Negative (Negative); ASPERGILLUS FUMIGATUS ABY Negative (Negative); ASPERGILLUS NIGER ABY Negative (Negative)
[2024-07-13 19:57] LABS: FUNGITELL INTERPRETATION NEGATIVE (NEGATIVE); FUNGITELL, SERUM 36 pg/mL (<60)
[2024-07-14 01:07] LABS: ANCA SCREEN Negative (Negative)
== END 2024-07-11 14:05 | disposition expired | DRG 189 ==
LOC: M ED 11:09 → EDBEDREQSVC 14:12 → M ED INP 15:02 → M ICU 16:29 → M PCU 07-03 18:36
PROVIDERS: ADMIT Internal Medicine Pulmonary Disease; ATTEND Internal Medicine Pulmonary Disease
PROC: B246ZZZ Ultrasonography of Right and Left Heart (ICD-10-PCS; principal; 2024-07-02)
DX: J96.01 Acute respiratory failure with hypoxia (principal); J15.9 Unspecified bacterial pneumonia; J84.9 Interstitial pulmonary disease, unspecified; J45.909 Unspecified asthma, uncomplicated; F02.80 Dementia in other diseases classified elsewhere, unspecified severity, without behavioral disturbance, psychotic disturbance, mood disturbance, and anxiety; G31.83 Neurocognitive disorder with Lewy bodies; I10 Essential (primary) hypertension; Z90.79 Acquired absence of other genital organ(s); Z96.651 Presence of right artificial knee joint; Z87.891 Personal history of nicotine dependence; Z79.899 Other long term (current) drug therapy; Z88.0 Allergy status to penicillin; Z88.1 Allergy status to other antibiotic agents; Z88.6 Allergy status to analgesic agent; Z91.030 Bee allergy status; E87.6 Hypokalemia; Z51.5 Encounter for palliative care